=== PATIENT | male | born 1960 | race Caucasian/White ===

== ENCOUNTER 2016-04-26 09:36 | Observation (INO) | payer OTHER ==
[~2016-04-26] VITALS: Ht 185.4 cm; Wt 131.5 kg
[2016-04-26] MEDS ORDERED: ASPIRIN 81 MG CHEW TAB ONE (10:02)
[2016-04-26] MEDS ORDERED: LORAZEPAM 2 MG/ML VIAL ONE ×2 (10:17→13:39)
[2016-04-26] MEDS ORDERED: DUONEB INH ONE (10:24)
[2016-04-26] MEDS ORDERED: NITROGLYCERIN 2% OINT 1 INCH PKT TOPICAL ONE (12:30)
[2016-04-26] MEDS ORDERED: TRAMADOL 50 MG TAB PO PRN (13:05)
[2016-04-26] MEDS ORDERED: ALU/MAG/SIM 30 ML UDC PO PRN (13:05)
[2016-04-26] MEDS ORDERED: DOCUSATE SOD 100 MG CAP PO PRN (13:05)
[2016-04-26] MEDS ORDERED: NITROGLYCERIN SL 0.4 MG TAB SL PRN (13:05)
[2016-04-26] MEDS ORDERED: TEMAZEPAM 15 MG CAP PO PRN (13:05)
[2016-04-26] MEDS ORDERED: ONDANSETRON 4 MG VIAL IV PRN (13:05)
[2016-04-26] MEDS ORDERED: MORPHINE 2 MG/ML SYR IV PRN (13:05)
[2016-04-26] MEDS ORDERED: ACETAMINOPHEN 325 MG TAB PO PRN (13:05)
[2016-04-26] MEDS ORDERED: TEMAZEPAM 7.5 MG CAP PO PRN (13:05)
[2016-04-26] MEDS ORDERED: OPTIRAY 350 100 ML VIAL HMH IV ONE (13:05)
[2016-04-26] MEDS: Losartan 50 MG TAB PO SCH (15:13)
[2016-04-26] MEDS: CYANOCOBA 500 MCG TAB PO SCH (15:13)
[2016-04-26] MEDS: OMEGA 3 FATTY ACIDS 1 GM CAP PO SCH (15:13)
[2016-04-26 15:26] VITALS: BP_SYST 123; RESP 18; TEMP 97.3
[2016-04-26 15:31] VITALS: Ht 185.4 cm; Wt 131.5 kg
[2016-04-26] MEDS: LORAZEPAM 0.5 MG TAB PO PRN (19:15)
[2016-04-26 19:46] VITALS: BP_SYST 123; RESP 18; TEMP 98.5
[2016-04-26 23:49] VITALS: BP_SYST 122; RESP 18; TEMP 98
[2016-04-27] VITALS (8 sets, daily range): BP systolic 118–141; RESP 14–24; TEMP 97.4–98
[2016-04-27] MEDS: LORAZEPAM 0.5 MG TAB PO PRN ×2 (04:31→12:20)
[2016-04-27] MEDS: OMEGA 3 FATTY ACIDS 1 GM CAP PO SCH (10:30)
[2016-04-27] MEDS: ASPIRIN 81 MG CHEW TAB PO SCH (10:30)
[2016-04-27] MEDS: Losartan 50 MG TAB PO SCH (10:30)
[2016-04-27] MEDS: CYANOCOBA 500 MCG TAB PO SCH (10:30)
[2016-04-27] MEDS: NEB-XOPENEX 0.63 MG/3 ML INH SCH ×2 (16:09→22:33)
[2016-04-28 03:12] VITALS: BP_SYST 130; RESP 20; TEMP 97.6
[2016-04-28] MEDS: NEB-XOPENEX 0.63 MG/3 ML INH SCH ×2 (06:40→15:22)
[2016-04-28 06:43] VITALS: RESP 20
[2016-04-28 07:34] VITALS: BP_SYST 134; RESP 18; TEMP 97.6
[2016-04-28] MEDS: Losartan 50 MG TAB PO SCH (07:52)
[2016-04-28] MEDS: CYANOCOBA 500 MCG TAB PO SCH (07:52)
[2016-04-28] MEDS: OMEGA 3 FATTY ACIDS 1 GM CAP PO SCH (07:52)
[2016-04-28] MEDS: ASPIRIN 81 MG CHEW TAB PO SCH (07:53)
[2016-04-28] MEDS ORDERED: PANTOPRAZOLE 40 MG TAB PO SCH (08:55)
[2016-04-28 12:12] VITALS: BP_SYST 145; RESP 18; TEMP 98.7
[2016-04-28 14:37] VITALS: BP_SYST 145; RESP 18; TEMP 98.7
[2016-04-28 15:38] VITALS: BP_SYST 145; RESP 18; TEMP 98.7
== END 2016-04-28 16:36 | disposition home or self-care (01) ==
LOC: ENRESERVTM → ENRESERVDT → ER 09:36 → ENPENDDIS 13:04 → EMR 13:04 → 4THE 14:50
PROVIDERS: ADMIT Internal Medicine Cardiovascular Disease; ATTEND Internal Medicine Cardiovascular Disease
DX: R07.9 Chest pain, unspecified (principal); I49.3 Ventricular premature depolarization; I10 Essential (primary) hypertension; I51.7 Cardiomegaly; E78.5 Hyperlipidemia, unspecified; F41.9 Anxiety disorder, unspecified
CPT/HCPCS: 36415; 71010; 71260; 78452; 80053; 80061; 82550; 82553; 83735; 83880; 84484; 85025; 85379; 85610; 85730; 93005; 93017; 93306; 94640; 94799; 96374; 96376; 99223; 99253; 99255